=== PATIENT | male | born 1970 | race Caucasian/White ===

== ENCOUNTER → 2018-05-22 | Outpatient (CLI) | payer BC, OTHER ==
--- NOTE | 2018-05-22 16:07 | 2DMMODE ---
[facility] [address] [place] [address] 2 D/M-MODE ECHOCARDIOGRAM Name: ILENE VERGARANT Room #: REG [facility]#: [id number] ������������� Admission: 05/22/18 ������������� Attend Phys: Sarbjit Escamilla Discharge: ��� ������������� ��� Date of : 70 Date of Service: 05/22/18 1607 �� Report #: [id number] �������� ��������������������������������������������[id number] THIS REPORT FOR: //name// APPROVED REPORT Study performed: 05/22/2018 14:07:32 EXAM: Comprehensive 2D, Doppler, and color-flow Echocardiogram Patient Location: Out-Patient BSA: 2.31 HR: 45 bpm BP: 142/80 mmHg Rhythm: Bradycardia/Irregular Other Information Study Quality: Adequate Technically limited study due to morbid obesity. Indications Bradycardia Hx: HTN, HLP, DM. 2D Dimensions RVDd: 35.04 mm IVSd: 9.82 (7-11mm) LVOT Diam: 21.25 (18-24mm) LVDd: 55.23 mm PWd: 10.01 (7-11mm) Ascending Ao: 32.48 (22-36mm) LVDs: 30.01 (25-40mm) Aortic Root: 35.83 mm Volumes Left Atrial Volume (Systole) Single Plane 4CH: 46.99 mL Single Plane 2CH: 43.18 mL LA ESV Index: 21.00 mL/m2 Aortic Valve AoV Peak Fermin.: 1.29 m/s AO Peak Gr.: 6.65 mmHg LVOT Max P.53 mmHg LVOT Max V: 1.06 m/s RKISTINE Vmax: 2.93 cm2 Mitral Valve E/A Ratio: 1.1 [facility] [address] [place] [address] 2 D/M-MODE ECHOCARDIOGRAM Name: SAURABH Room #: REG [facility]#: [id number] ������������� Admission: 05/22/18 ������������� Attend Phys: [facility] Discharge: ��� ������������� ��� Date of : 70 Date of Service: 05/22/18 1607 �� Report #: [id number] �������� ��������������������������������������������[id number] MV Decel. Time: 278.82 ms MV E Max Fermin.: 1.10 m/s MV A Fermin.: 1.04 m/s MV PHT: 80.86 ms IVRT: 78.43 ms Pulmonary Valve PV Peak Fermin.: 1.15 m/s PV Peak Gr.: 5.33 mmHg Pulmonary Vein P Vein S: 0.52 m/s P Vein D: 0.28 m/s P Vein S/D Ratio: 1.86 Tricuspid Valve RAP Estimate: 5.00 mmHg Left Ventricle The left ventricle is normal size. Regional wall motion is grossly normal. There is normal left ventricular wall thickness. Left ventricular systolic function is normal. LVEF is 55-60%. No consistent pattern for diastolic function assessment. Right Ventricle The right ventricle is normal size. The right ventricular systolic function is normal. Atria The left atrium size is normal. The right atrium size is normal. Aortic Valve The aortic valve is normal in structure. No aortic regurgitation is present. There is no aortic valvular stenosis. Mitral Valve The mitral valve is normal in structure. There is no mitral valve regurgitation noted. No evidence of mitral valve stenosis. Tricuspid Valve The tricuspid valve is normal in structure. There is no tricuspid valve regurgitation noted. Unable to assess PA pressure. Pulmonic Valve The pulmonary valve is normal in structure. Trace pulmonic regurgitation. [facility] [address] [place] [address] 2 D/M-MODE ECHOCARDIOGRAM Name: ILENE VERGARANT Room #: REG [facility]#: [id number] ������������� Admission: 05/22/18 ������������� Attend Phys: Sarbjit Escamilla Discharge: ��� ������������� ��� Date of : 70 Date of Service: 05/22/18 1607 �� Report #: [id number] �������� ��������������������������������������������[id number] [employer]els The aortic root is normal in size. The ascending aorta is normal in size. IVC is normal in size and collapses >50% with inspiration. Pericardium There is no pericardial effusion. <Conclusion> The left ventricle is normal size. LVEF is 55-60%. The aortic valve is normal in structure. The mitral valve is normal in structure. The tricuspid valve is normal in structure. There is no tricuspid valve regurgitation noted. Unable to assess PA pressure. The pulmonary valve is normal in structure. Trace pulmonic regurgitation. There is no pericardial effusion. ��������������������������������������������� <ELECTRONICALLY SIGNED> ���������������������������������������� By: Nigel Islas MD ��������������������������������������������� 05/22/18 1607 1607 160 Nigel Islas MD /INF
== END ==
LOC: CV 07:52
DX: R00.1 Bradycardia, unspecified (principal); I10 Essential (primary) hypertension; E78.5 Hyperlipidemia, unspecified; E11.9 Type 2 diabetes mellitus without complications; Z88.8 Allergy status to other drugs, medicaments and biological substances

== ENCOUNTER 2018-06-10 10:11 | Observation (INO) | payer BC, OTHER ==
[~2018-06-10] VITALS: Ht 177.8 cm; Wt 117.9 kg
[2018-06-10] VITALS (10 sets, daily range): BP systolic 145–163; BP diastolic 71–110
[2018-06-10 10:49] LABS: ABSOLUTE NEUTROPHILS 5.9 thou/uL (1.4-8.2); BASOPHILS 0.6 % (0.0-2.0); EOSINOPHILS 0.4 % (0.0-3.0); HEMOGLOBIN 15.8 gm/dL (14.0-18.0); LYMPHOCYTES 21.2 % (24.0-44.0); MCHC 32.9 g/dL (28.0-37.0); MCV 88.3 fL (80.0-100.0); PLATELET COUNT 232 thou/uL (150-400); POLYS 71.8 % (36.0-66.0); RBC 5.44 mil/uL (4.50-6.00); RDW 15.1 % (10.5-14.5); WBC 8.2 thou/uL (4.0-11.0)
[2018-06-10 10:58] LABS: APTT 28.4 Seconds (24.5-32.8); PROTIME 9.7 Seconds (9.3-11.4)
[2018-06-10 10:59] LABS: CALCIUM 10.2 mg/dL (8.5-10.1); CREATININE 1.7 mg/dL (0.7-1.3); POTASSIUM 4.8 mmol/L (3.5-5.1)
[2018-06-10 11:06] LABS: ALBUMIN 4.3 g/dL (3.4-5.0); TOTAL PROTEIN 7.4 g/dL (6.4-8.2)
[2018-06-10] MEDS ORDERED: ZYLOPRIM300 MG PO (11:09)
[2018-06-10] MEDS ORDERED: NORVASC10 MG PO (11:09)
[2018-06-10] MEDS ORDERED: LIPITOR10 MG PO (11:10)
[2018-06-10] MEDS ORDERED: TRULICITY1.5 MG/0.5 SUBQ (11:11)
[2018-06-10] MEDS ORDERED: JARDIANCE10 MG PO (11:12)
[2018-06-10] MEDS ORDERED: GLYBURIDE 2.52.5 MG PO (11:12)
[2018-06-10] MEDS ORDERED: METFORMIN HCL500 MG PO (11:13)
--- NOTE | 2018-06-10 18:33 | NUR ---
PT CARE ASSUMED APPROX 1515. PT ADMITTED FROM EP LAB VIA PACU POST PPM PLACEMENT. PT ALERT AND ORIENTED X4. DENIES PAIN AND SOA. BP ELEVATED. TRACI COHN ANP NOTIFIED AND ONE TIME NORVASC DOSE ORDERED. PT BP IMPROVING SLOWLY. VS OTHERWISE STABLE. POST EP PROCEDURE PROTOCOL IN PROCESS. NO ISSUES NOTED. LEFT CHEST INCISION C/D/I. LEFT ARM IMMOBLIZER IN PLACE. BS WNL. PT DENIES QUESTIONS OR CONCERNS REGARDING POC. NO DISTRESS NOTED.
--- NOTE | 2018-06-11 03:13 | NUR ---
ASSUMED CARE 1900. VSS. ASSESSMENT CHARTED. V-PACED SR-ST LOW 100S. PT DENIES CP, SOA, N/V OR CONCERNS. LEFT CHEST INCISION CDI, LE IMMOBILIZER IN PLACE. PT STEADY ON FEET X1 ASSIST TO COMMOD DUE TO IMMOBILIZER. PT HOPEFUL TO D/C TODAY. PLAN FOR CXR THIS AM. WILL CONTINUE TO MONITOR AND WITH POC.
[2018-06-11 04:43] VITALS: BP 161/99
[2018-06-11 07:48] VITALS: BP 134/95
[2018-06-11 10:53] VITALS: BP 146/91
[2018-06-11 10:58] VITALS: BP 134/95
--- NOTE | 2018-06-11 11:29 | NUR ---
ASSESSMENT CHARTED - MEDS PER APR - HYSDROCODONE GIVEN FOR HEADACHE WITH GOOD EFFECT. NO CO'S OF NAUSEA. ERICKA DIET AND FLUIDS. UP AD CARLINE IN ROOM - HOME THIS AM - INSTRUCTION RE HOME MEDS/ CARE AND FOLLOW UP GIVEN TO PATIENT- STATED UNDERSTANDING OF INSTRUCTION GIVEN. MONITOR AND IV'S X 2 REMOVED PRIOR TO D/C. LEFT UNIT VIA WHEELCHAIR - HOME VIA PVT VEHICLE ACCOMAPNIED BY SISTER - NO CO'S AT TIME OF D/C.
--- NOTE | 2018-06-17 14:33 | P ---
[facility] [place] [address] PROCEDURE REPORT Name: SAURABH VERGARA Room #: 219-P [facility] Leandro M.RJulius#: [id number] Admission: 06/10/18 ������������������ Attend Phys: Sarbjit Escamilla MD Discharge: 06/11/18 ������������������ Date of : 70 Report #: [id number] THIS REPORT FOR: //name// CC: THEODORA Marie DATE OF SERVICE: 06/10/2018 PREOPERATIVE DIAGNOSIS: Complete heart block. POSTOPERATIVE DIAGNOSIS: Complete heart block. HISTORY: The patient is a 47-year-old who recently started experiencing symptomatic bradycardia and he diagnosed himself via his watch that he had new onset bradycardia. He had a quality assurance monitor final showing complete heart block. He is here for dual chamber pacemaker implantation. ANESTHESIA: The patient underwent MAC anesthesia with no anesthesia related complications. DESCRIPTION OF PROCEDURE: The patient underwent informed consent. We discussed the details of the procedure including the risks, which include but not limited to bleeding, infection, vascular damage, cardiac perforation and pneumothorax. He understood these risks and is willing to proceed. The patient was brought to the EP laboratory in a fasting and unsedated state and prepped and draped in a sterile fashion. He underwent a venogram showing patency of left axillary vein and received IV antibiotics for antibiotic prophylaxis. Next, I injected lidocaine below the level of left clavicle. Incision was made. A pocket was created over the prepectoral fascia and access was obtained twice to left axillary vein using the extrathoracic approach. Next, sheaths were positioned using the modified Seldinger technique. Next, under fluoroscopy, a lead was placed into the right ventricular mid septum and an atrial lead was placed into the right atrial appendage, both leads demonstrated adequate pacing and sensing thresholds. The leads were sutured to the prepectoral fascia using Ethibond. The leads were connected to the device. Tug tests were performed. The pocket was irrigated with vancomycin and then the pocket was closed in 3 layers. Surgical glue was placed to the outer skin layer. The patient awoke neurologically and hemodynamically intact. No complications and no significant bleeding. The implanted pacemaker was a Medtronic model #W3DR01, serial #[id number]. This [facility] [address] [place] [address] PROCEDURE REPORT Name: SAURABH VERGARA ZHEN Room #: 219-P [facility] Leandro Mendoza#: [id number] Admission: 06/10/18 ������������������ Attend Phys: Sarbjit Escamilla MD Discharge: 06/11/18 ������������������ Date of : 70 Report #: [id number] was an MRI compatible pacemaker. The atrial lead was a model #5076, serial #[id number] with P waves of 3.5 millivolts, pacing impedance of 608 ohms and a pacing threshold 1.5 volts at 0.5 milliseconds. RV lead was a Medtronic model #5076, serial#[id number]. The R waves were 8 millivolts, pacing impedance was 703 ohms and the pacing threshold was 0.5 volts at 0.4 milliseconds. The device was programmed to the DDD 60-140 mode. CONCLUSIONS: 1. Successful dual-chamber pacemaker implantation. 2. Satisfactory atrial and ventricular pacing and sensing thresholds. ��������������������������������������������� <ELECTRONICALLY SIGNED> ���������������������������������������� By: Sarbjit Escamilla MD ��������������������������������������������� 06/17/18 1433 [id number] [id number] Sarbjit Escamilla MD /nt
== END 2018-06-11 11:30 | disposition home or self-care (01) ==
LOC: CATH 10:11 → 2N 15:08 → ENTRNSPT 06-11 11:19 → EDTRNSPTSTS 06-11 11:21 → 2N 06-11 11:30
PROVIDERS: ADMIT Internal Medicine Cardiovascular Disease
DX: I44.2 Atrioventricular block, complete (principal); Z88.8 Allergy status to other drugs, medicaments and biological substances
CPT/HCPCS: 62110; 62900; 70005

== ENCOUNTER → 2019-10-07 | Outpatient (CLI) | payer BC, OTHER ==
[~2019-10-07] MED LIST: GLYBURIDE 2.52.5 MG PO; JARDIANCE10 MG PO; LIPITOR10 MG PO; METFORMIN HCL500 MG PO; NORVASC10 MG PO; TRULICITY1.5 MG/0.5 SUBQ; ZYLOPRIM300 MG PO
== END ==
LOC: SJCVCIMAG 08:00
PROVIDERS: ATTEND Internal Medicine Cardiovascular Disease
DX: I11.9 Hypertensive heart disease without heart failure (principal); E11.9 Type 2 diabetes mellitus without complications; Z95.0 Presence of cardiac pacemaker